=== PATIENT | male | born 1970 | race Two or more races ===

== ENCOUNTER 2018-06-18 10:21 | Emergency (ER) | payer SELFPAY ==
[~2018-06-18] VITALS: Ht 182.9 cm; Wt 88.5 kg
--- NOTE | 2018-06-18 10:47 | PHYS DOC ---
Past Medical History Past Medical History: Alcoholism Smoking: Cigarettes, 1 Pack Per Day Alcohol Use: Heavy Drug Use: None Adult General Chief Complaint Chief Complaint: OTHER COMPLAINTS HPI HPI Patient is a 48-year-old male who presents to the emergency department for evaluation. He states that he is an alcoholic, and was sent here by the [facility] health service. He states that he was arrested last week and spent 3 days in group home for DWI. He states he got out and drank all day Monday, but has not had a drink since then. He states that he has been sober in the past for as long as 3 months, but he has been drinking heavily, pretty much regularly, drinking about a fifth a day, for the past 25-30 years. He has never had alcohol withdrawal seizure. He states he spent 3 days in group home without any alcohol. He does sometimes get a little jittery and shaky when he is without alcohol for prolonged periods of time. He denies any other complaints at this time. He denies any pain, any suicidal or homicidal thoughts, or hallucinations. He is uncertain exactly why he is here, he thinks he is here to be admitted to the hospital. I did speak with Yeison, from the PAT team, who stated that he was aware of the patient, and the patient needs a medical screening exam, and that he will be admitted to the [facility] adult detox unit. Review of Systems Review of Systems Constitutional: Denies fever or chills [] Eyes: Denies change in visual acuity, redness, or eye pain [] HENT: Denies nasal congestion or sore throat [] Respiratory: Denies cough or shortness of breath [] Cardiovascular: The patient denies any shortness of breath, chest pain, palpitations, or orthopnea [] GI: Denies abdominal pain, nausea, vomiting, bloody stools or diarrhea [] : Denies dysuria or hematuria [] Musculoskeletal: Denies back pain or joint pain [] Integument: Denies rash or skin lesions [] Neurologic: Denies headache, focal weakness or sensory changes [] Endocrine: Denies polyuria or polydipsia [] All other systems were reviewed and found to be within normal limits, except as documented in this note. Current Medications Current Medications Current Medications Medications (Trade) Dose Ordered Sig/Lawrence Start Time Stop Time Status Last Admin Dose Admin Folic Acid (Folic Acid) 1 mg 1X ONCE 12/3/18 11:30 06/18/18 11:31 DC Lorazepam (Ativan) 1 mg 1X ONCE 06/18/18 11:30 06/18/18 11:31 DC Magnesium Oxide (Magnesium Oxide) 800 mg DAILY 06/19/18 09:00 UNV Multivitamins (Thera M Plus) 1 tab 1X ONCE 06/18/18 11:30 06/18/18 11:31 DC Thiamine Mononitrate (Vitamin B-1) 100 mg 1X ONCE 06/18/18 11:00 06/18/18 11:24 DC Allergies Allergies Allergies Coded Allergies Type Severity Reaction Last Updated Verified ibuprofen Allergy Mild Unknown 06/18/18 Yes Penicillins Allergy Unknown 06/18/18 Yes Physical Exam Physical Exam PHYSICAL EXAM: CONSTITUTIONAL: Well developed, well nourished HEAD: normocephalic, atraumatic EENT: PERRL, EOMI. Conjunctivae normal color, sclerae non-icteric; moist mucous membranes. NECK: Supple, non-tender; no meningismus. LUNGS: Lungs CTA, breathing even and unlabored. Normal air movement. HEART: Regular rate and rhythm, no murmur CHEST: No deformity; non-tender ABDOMEN: The abdomen is soft, and non-tender, no masses or bruits. EXTREM: Normal ROM; no deformity, no calf tenderness. Normal pulses palpable in all extremities. There is no pedal edema. SKIN: No rash; no diaphoresis NEURO: Alert; normal speech and cognition; CN's grossly intact; strength grossly intact without focal deficit. BACK: No CVA TTP. Current Patient Data Vital Signs Vital Signs Date Time Temp Pulse Resp B/P (MAP) Pulse Ox O2 Delivery O2 Flow Rate FiO2 06/18/18 11:07 98.9 91 16 133/83 (100) 91 Room Air 98.9 Lab Values Laboratory Tests Test 06/18/18 11:00 White Blood Count 5.2 x10^3/uL (4.0-11.0) Red Blood Count 4.02 x10^6/uL (4.30-5.70) L Hemoglobin 13.7 g/dL (13.0-17.5) Hematocrit 39.7 % (39.0-53.0) Mean Corpuscular Volume 99 fL (79-100) Mean Corpuscular Hemoglobin 34 pg (25-35) Mean Corpuscular Hemoglobin Concent 34 g/dL (31-37) Red Cell Distribution Width 14.0 % (11.5-14.5) Platelet Count 74 x10^3/uL (140-400) L Neutrophils (%) (Auto) 74 % (31-73) H Lymphocytes (%) (Auto) 12 % (24-48) L Monocytes (%) (Auto) 11 % (0-9) H Eosinophils (%) (Auto) 3 % (0-3) Basophils (%) (Auto) 0 % (0-3) Neutrophils # (Auto) 3.8 x10^3uL (1.8-7.7) Lymphocytes # (Auto) 0.6 x10^3/uL (1.0-4.8) L Monocytes # (Auto) 0.6 x10^3/uL (0.0-1.1) Eosinophils # (Auto) 0.2 x10^3/uL (0.0-0.7) Basophils # (Auto) 0.0 x10^3/uL (0.0-0.2) Prothrombin Time 14.8 SEC (11.7-14.0) H Prothrombin Time INR 1.2 (0.8-1.1) H PTT 30 SEC (24-38) Urine Color [place]lin Urine Clarity Clear Urine pH 6.5 Urine Specific [place] 1.025 Urine Protein Negative mg/dL (NEG-TRACE) Urine Glucose (UA) Negative mg/dL (NEG) Urine Ketones (Stick) Trace mg/dL (NEG) Urine Blood Negative (NEG) Urine Nitrite Negative (NEG) Urine Bilirubin Small (NEG) Urine Urobilinogen Dipstick 4.0 mg/dL (0.2 mg/dL) Urine Leukocyte Esterase Negative (NEG) Urine RBC 0 /HPF (0-2) Urine WBC 0 /HPF (0-4) Urine Squamous Epithelial Cells None /LPF Urine Bacteria 0 /HPF (0-FEW) Urine Mucus Marked /LPF Sodium Level 141 mmol/L (136-145) Potassium Level 3.6 mmol/L (3.5-5.1) Chloride Level 102 mmol/L (98-107) Carbon Dioxide Level 27 mmol/L (21-32) Anion Gap 12 (6-14) Blood Urea Nitrogen 10 mg/dL (8-26) Creatinine 1.0 mg/dL (0.7-1.3) Estimated GFR (Cockcroft-Gault) 80.1 Glucose Level 114 mg/dL (70-99) H Calcium Level 8.8 mg/dL (8.5-10.1) Magnesium Level 1.4 mg/dL (1.8-2.4) L Total Bilirubin 1.5 mg/dL (0.2-1.0) H Direct Bilirubin 0.7 mg/dL (0.0-0.2) H Aspartate Amino Transferase (AST) 105 U/L (15-37) H Alanine Aminotransferase (ALT) 60 U/L (16-63) Alkaline Phosphatase 121 U/L (46-116) H Total Protein 7.8 g/dL (6.4-8.2) Albumin 3.4 g/dL (3.4-5.0) Salicylates Level < 2.8 mg/dL (2.8-20.0) L Salicylate Last Dose Date Unknown Salicylate Last Dose Time Unknown Urine Opiates Screen Neg (NEG) Urine Methadone Screen Neg (NEG) Acetaminophen Level < 2 mcg/ml (10-30) L Acetaminophen Last Dose Date Unknown Acetaminophen Last Dose Time Unknown Urine Barbiturates Neg (NEG) Urine Phencyclidine Screen Neg (NEG) Urine Amphetamine/Methamphetamine Neg (NEG) Urine Benzodiazepines Screen Pos (NEG) Urine Cocaine Screen Neg (NEG) Urine Cannabinoids Screen Pos (NEG) Ethyl Alcohol Level < 10 mg/dL (0-10) Urine Ethyl Alcohol Neg (NEG) Laboratory Tests 06/18/18 11:00 Laboratory Tests 06/18/18 11:00 EKG EKG [Normal sinus rhythm at a rate of 88 beats for minute, rightward axis, normal intervals. There are no acute ischemic ST/T changes artifact present.] Radiology/Procedures Radiology/Procedures [] Course & Med Decision Making Course & Med Decision Making Pertinent Lab studies reviewed. (See chart for details) [11:55 AM:Patient remains stable. I discussed test results, the need for close follow-up, and return precautions. He will be going to the adult detox unit of [facility], as previously arranged. The patient is medically stable for outpatient alcohol detoxification. I did discuss the elevation of the liver function tests with the patient and the importance of stopping drinking to help protect his liver. I also discussed the need for further outpatient medical evaluation. The patient will be given resources a local primary care providers.] Morgan Disclaimer Dragon Disclaimer This electronic medical record was generated, in whole or in part, using a voice recognition dictation system. Departure Departure Impression: Primary Impression: Alcoholism Disposition: HOME, SELF-CARE Condition: STABLE Referrals: UNKNOWN PCP NAME (PCP) Patient Instructions: Alcohol Problems Additional Instructions: Go directly to the adult detox unit as previously arranged. ABDI STEWART MD Jun 18, 2018 10:47
[2018-06-18] MEDS ORDERED: THIAMINE 100 MG TABLET. PO ONE (11:00)
[2018-06-18 11:16] LABS: BASO % 0 % (0-3); EOS # 0.2 x10^3/uL (0.0-0.7); EOS % 3 % (0-3); HEMATOCRIT 39.7 % (39.0-53.0); HEMOGLOBIN 13.7 g/dL (13.0-17.5); LYMPH # 0.6 x10^3/uL (1.0-4.8); LYMPH % 12 % (24-48); MEAN CORPUSCULAR HEMOGLOBIN 34 pg (25-35); MEAN CORPUSCULAR HGB CONC 34 g/dL (31-37); MEAN CORPUSCULAR VOLUME 99 fL (79-100); MONO # 0.6 x10^3/uL (0.0-1.1); MONO % 11 % (0-9); NEUT # 3.8 x10^3uL (1.8-7.7); NEUT % 74 % (31-73); PLATELET COUNT 74 x10^3/uL (140-400); RED BLOOD COUNT 4.02 x10^6/uL (4.30-5.70); WHITE BLOOD COUNT 5.2 x10^3/uL (4.0-11.0)
[2018-06-18 11:21] LABS: PROTHROMBIN TIME PATIENT 14.8 SEC (11.7-14.0)
[2018-06-18 11:26] LABS: CALCIUM 8.8 mg/dL (8.5-10.1); GFR 80.1; POTASSIUM 3.6 mmol/L (3.5-5.1)
[2018-06-18 11:30] LABS: BILIRUBIN,URINE SMALL (NEG); CLARITY,URINE CLEAR; COLOR,URINE AMBER; NITRITE,URINE NEGATIVE (NEG); PH,URINE 6.5; PROTEIN,URINE NEGATIVE (NEG-TRACE)
[2018-06-18] MEDS ORDERED: LORazepam 1 MG TABLET PO ONE (11:30)
[2018-06-18] MEDS ORDERED: MULTIVITAMIN with MINERAL TABLET. PO ONE (11:30)
[2018-06-18] MEDS ORDERED: FOLIC ACID 1 MG TABLET. PO ONE (11:30)
[2018-06-18 11:31] LABS: ACETAMIN < 2 mcg/ml (10-30); ALBUMIN 3.4 g/dL (3.4-5.0); BARBITURATES NEG (NEG); BENZODIAZEPINES POS (NEG); CANNABINOIDS POS (NEG); COCAINE NEG (NEG); DIRECT BILIRUBIN 0.7 mg/dL (0.0-0.2); ETHANOL < 10 mg/dL (0-10); MAGNESIUM 1.4 mg/dL (1.8-2.4); METHADONE NEG (NEG); OPIATES NEG (NEG); PHENCYCLIDINE NEG (NEG); SALIC < 2.8 mg/dL (2.8-20.0); TOTAL BILIRUBIN 1.5 mg/dL (0.2-1.0); TOTAL PROTEIN 7.8 g/dL (6.4-8.2)
[2018-06-18 11:32] LABS: AMPHETAMINE/METHAMPHETAMINE NEG (NEG)
[2018-06-18 11:44] LABS: BACTERIA,URINE 0 /HPF (0-FEW); RBC,URINE 0 /HPF (0-2); WBC,URINE 0 /HPF (0-4)
[2018-06-18] MEDS ORDERED: MAGNESIUM OXIDE 400 MG TABLET PO SCH (12:00)
--- NOTE | 2018-06-18 12:26 | EKG ---
[facility] [address] [place] [address] Test Date: 2018-06-18 Test Time: 10:55:06 Pat Name: HENRIK HAGEN Department: Room: Gender: M Pediatric Lpn: : 1970 Requested By: ABDI STEWART Order Number: [id number] Reading MD: Measurements Intervals [place] Rate: 88 P: 142 [place]: 146 QRS: -161 QRSD: 84 T: 169 QT: 374 QTc: 456 Interpretive Statements SINUS RHYTHM ABNORMAL RIGHT SUPERIOR AXIS DEVIATION QRS(T) CONTOUR ABNORMALITY CONSISTENT WITH HIGH LATERAL INFARCT AGE UNDETERMINED T ABNORMALITY IN INFERIOR LEADS ABNORMAL ECG RI6.01 No previous ECG available for comparison
[2018-06-18 12:28] VITALS: BP 135/82
== END 2018-06-18 12:41 | disposition home or self-care (01) ==
LOC: ER 10:21
DX: F10.20 Alcohol dependence, uncomplicated (principal); F17.210 Nicotine dependence, cigarettes, uncomplicated; Y90.0 Blood alcohol level of less than 20 mg/100 ml; Z88.6 Allergy status to analgesic agent; Z88.0 Allergy status to penicillin
CPT/HCPCS: 36415; 80048; 80076; 80307; 80329; 81001; 83735; 85025; 85610; 85730; 93005; 99284; G0480; G6039